=== PATIENT | female | born 1995 | race Caucasian/White ===

== ENCOUNTER 2016-09-14 00:59 | Emergency (ER) | payer OTHER ==
[~2016-09-14] VITALS: Ht 180.3 cm; Wt 127.3 kg
[2016-09-14 01:09] VITALS: BP 163/85; PULSE 80; TEMP 98.4
== END 2016-09-14 02:06 | disposition left against medical advice (07) ==
LOC: COL.ER 00:59
DX: R10.84 Generalized abdominal pain (principal); Z53.21 Procedure and treatment not carried out due to patient leaving prior to being seen by health care provider